=== PATIENT | male | born 1995 | race Asian ===

== ENCOUNTER 2021-01-05 00:02 | Emergency (ER) | payer OTHER ==
[~2021-01-05] VITALS: Ht 165.1 cm; Wt 54.4 kg
[2021-01-05 00:02] VITALS: BP 123/58
[2021-01-05] MEDS ORDERED: IBUPROFEN 400 MG TABLET ONE (00:20)
[2021-01-05] MEDS ORDERED: IBUPROFEN 200 MG TABLET ONE (00:21)
--- NOTE | 2021-01-05 00:28 | NUR ---
STREP SWAB COLLECTED AND SENT TO LAB
[2021-01-05] MEDS ORDERED: IBUPROFEN 400 MG TABLET PO ONE (00:30)
== END 2021-01-05 01:08 | disposition home or self-care (01) ==
LOC: ER 00:09
DX: J02.8 Acute pharyngitis due to other specified organisms (principal); R59.0 Localized enlarged lymph nodes
CPT/HCPCS: 86403-TC; 87070-TC